=== PATIENT | male | born 1975 ===

== ENCOUNTER → 2025-05-31 06:14 | Day surgery (SDC) | payer BC, SELFPAY ==
[2025-05-31] VITALS (8 sets, daily range): BP systolic 119–146; BP diastolic 38–82; BMI 37.6
[2025-05-31] MEDS: TYLENOL 1000 MG PO (15:39)
[2025-05-31] MEDS: NORMOSOL-R/PLASMALYTE-A 1000 IV (15:40)
--- NOTE | 2025-05-31 21:06 | W.IMMPOSTOP ---
Surgical Immed Post Op Note
-
Primary Surgeon: Juancarlos Funk MD
Assisting Surgeon:
Pre-op Diagnosis: right quadriceps tendon tear
Post-op Diagnosis: right quadriceps tendon tear
Procedure Performed: right quadriceps tendon repair
Anesthesia Type: general with regional
Specimen / Cultures: none
Estimated Blood Loss: 50mL
Complications: none apparent
Operative Findings: complete quadriceps tendon rupture, lateral thigh degloving
Operative dictation #: [id number]
== END | disposition home or self-care (01) ==
LOC: SDS 06:14
PROVIDERS: ATTENDING PHYSICIAN Student in an Organized Health Care Education/Training Program
DX: S76.121A Laceration of right quadriceps muscle, fascia and tendon, initial encounter (principal); W13.0XXA Fall from, out of or through balcony, initial encounter
CPT/HCPCS: 27385